=== PATIENT | female | born 1980 | race Asian ===

== ENCOUNTER 2018-10-10 20:19 | Emergency (ER) | payer BC ==
[2018-10-11 02:23] LABS: URINE PH (Dip) POC 6.5 (5.0-8.5)
[2018-10-11 02:23] LABS: URINE BLOOD (Dip) POC Negative (NEGATIVE); URINE GLUCOSE (Dip) POC Negative (NEGATIVE); URINE KETONES (Dip) POC 1+ (NEGATIVE); URINE LEUKOCYTE EST (Dip) POC Negative (NEGATIVE); URINE NITRITE (Dip) POC Negative (NEGATIVE); URINE TOTAL PROTEIN POC Negative (NEGATIVE)
== END 2018-10-11 03:13 | disposition home or self-care (01) ==
LOC: FTE 20:19
DX: J06.9 Acute upper respiratory infection, unspecified (principal)
CPT/HCPCS: 81003; 87400; 99283